=== PATIENT | female | born 1945 | race Caucasian/White ===

== ENCOUNTER 2017-12-01 20:27 | Emergency (ER) | payer OTHER ==
[2017-12-01 20:37] VITALS: BP 148/77
--- NOTE | 2017-12-01 21:16 | EDPHY ---
H & P Time Seen by Provider: 12/01/17 21:02 HPI/ROS: CHIEF COMPLAINT: Possible infection right medial calf HISTORY OF PRESENT ILLNESS: 72-year-old immunocompetent female with no history of recurrent skin infections or known history of MRSA, visiting from [place], noticed a progressively enlarging erythematous lesion on the right medial calf for the past few days. no history of tick bite or tick removal. PHYSICAL EXAM (Prior to examination, patient consented to physical exam, hands were washed and my usual and customary physical exam procedures followed) 1) GENERAL: Well-developed, well-nourished, alert and oriented. Appears to be in no acute distress. 2) HEAD: Normocephalic 3) HEENT: sclera anicteric 4) LUNGS: Breathing comfortably. 5) SKIN: Right medial distal calf for rhonchi healer lesion, tender, erythematous, no lymphangitic 6) MUSCULOSKELETAL: Soft compartments. No lymphangitic streaking. Negative Homans no palpable cord Smoking Status: Never smoked Constitutional: Initial Vital Signs Temperature (C) 36.7 C 12/01/17 20:33 Heart Rate 66 12/01/17 20:33 Respiratory Rate 16 12/01/17 20:33 Blood Pressure 148/77 H 12/01/17 20:33 O2 Sat (%) 95 12/01/17 20:33 O2 Delivery Mode Room Air Allergies/Adverse Reactions: No Known Allergies Allergy (Unverified 12/01/17 20:37) Home Medications: Medication Instructions Recorded Cephalexin [Keflex] 500 mg PO TID 10 Days cap 12/01/17 Lexapro 12/01/17 Restasis Opht Drops(*) 12/01/17 Synthroid 12/01/17 ED Images - Extremities Legs Front/Back: 1 - Lesion MDM/Departure - MDM ED Course/Re-evaluation: Doubt DVT, doubt necrotizing fasciitis. Patient does have an isolated tender furuncular skin lesion. She has no history of MRSA no history of recurrent skin infection. I recommended warm compresses, elevation, initiation of monotherapy with Keflex. She is from [place] in a we discussed possibility of tick bite although this lesion is not consistent with erythema migrans she has no history of tick bite. I do not think that initiation of doxycycline is appropriate at this time therefore as there is no history of known tick exposure. I discussed this with her and she understands and agrees with this plan. Usual customary return precautions instructions provided. I saw this patient independently based on established practice protocols. Care of patient under supervision of secondary supervising physician Dr Coe . - Depart Disposition: Home, Routine, Self-Care Clinical Impression: Furuncle of right lower limb Condition: Good Instructions: Cephalexin (By mouth), Furunculosis and Carbunculosis (ED) Additional Instructions: Return to the ER if you develop redness, swelling, discharge, warmth to the wound, flu-like symptoms, muscle aches, joint aches, red streaks going up your leg, or any other symptoms that concern you. Prescriptions: Cephalexin [Keflex] 500 mg PO TID 10 Days cap Referrals: MISA MERIDA [Other] - 5-7 days, call for appt.
[2017-12-01] MEDS ORDERED: CEPHALEXIN 500MG PREPACK#4 BTL TAKEHOME ONE (21:34)
== END 2017-12-01 21:45 | disposition home or self-care (01) ==
DX: L02.425 Furuncle of right lower limb (principal)